=== PATIENT | male | born 2000 | race Caucasian/White ===

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

== ENCOUNTER 2021-05-25 13:16 | Inpatient (IN) | payer OTHER ==
[~2021-05-25] VITALS: Ht 185.4 cm; Wt 79.2 kg
[2021-05-25 14:01] LABS: HEMATOCRIT 44.6 % (42.0-52.0); HEMOGLOBIN 15.5 g/dl (13.5-17.5); MEAN CORPUSCULAR HEMOGLOBIN 30.3 pg (27.0-33.0); MEAN CORPUSCULAR HGB CONC 34.8 g/dl (32.0-36.5); MEAN CORPUSCULAR VOLUME 87.3 fl (80.0-96.0); PLATELET COUNT, AUTOMATED 245 10^3/uL (150-450); RED BLOOD COUNT 5.11 10^6/uL (4.30-6.10); WHITE BLOOD COUNT 4.9 10^3/uL (4.0-10.0)
[2021-05-25 14:45] LABS: ACETAMINOPHEN LEVEL < 2.0 UG/ML (10.0-30.0); BLOOD UREA NITROGEN 22 MG/DL (7-18); CARBON DIOXIDE LEVEL 31 MEQ/L (21-32); CHLORIDE LEVEL 103 MEQ/L (98-107); CREATININE FOR GFR 0.99 MG/DL (0.70-1.30); ETHYL ALCOHOL (ETHANOL) < 0.003 % (0.000-0.010); GLUCOSE, FASTING 82 MG/DL (70-100); POTASSIUM SERUM 4.3 MEQ/L (3.5-5.1); SALICYLATE LEVEL < 1.7 MG/DL (5.0-30.0); SODIUM LEVEL 138 MEQ/L (136-145)
[2021-05-25 16:05] LABS: AMPHETAMINES LEVEL URINE NEGATIVE (NEGATIVE); BARBITURATES URINE NEGATIVE (NEGATIVE); BENZODIAZEPINES URINE NEGATIVE (NEGATIVE); CANNABINOIDS URINE NEGATIVE (NEGATIVE); COCAINE METABOLITE URINE NEGATIVE (NEGATIVE); METHADONE URINE NEGATIVE (NEGATIVE); OPIATES URINE NEGATIVE (NEGATIVE); PHENCYCLIDINE URINE NEGATIVE (NEGATIVE)
[2021-05-25 16:24] LABS: RSV AMPLIFICATION NEGATIVE (NEGATIVE)
[2021-05-25] MEDS ORDERED: HOME MED LIST COMPLETE! XX SCH (16:40)
[2021-05-25] MEDS ORDERED: MOM 30ML SUSPENSION UDC PO PRN (16:45)
[2021-05-25] MEDS ORDERED: MAALOX 30 ML SUSP *UDC PO PRN (16:45)
[2021-05-25 17:22] VITALS: BP 144/85
[2021-05-26 07:08] VITALS: BP 131/74
--- NOTE | 2021-05-26 07:52 | MHHPEPDOC ---
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 States was sent to [facility] for intake due to concerns by workgroup leader due to "my change behavior, being more quiet I guess". Reports having suicidal thoughts, "I thought about harming myself by crashing my truck in a telephone poll probably" last time was yesterday morning reportedly. Denies any past suicide attempts. States "the thoughts come and go, and has gradually gotten worse in the past couple months". Denies other suicidal plans apart from crashing truck. Reports depression started "has been progressively getting worse the past couple months, getting real bad". States "I'm tired all the time and can barely function", "I do't have interest in doing anything including leaving my room", Reports having breakdowns where he "cries alot". Stressors include work, "has been stressful, just seems I get a pena to get there on time, If not get punished". Denies other stressors on questioning. Does endorse mild depressive periods at the age of 17, reports didn't get along with mother's boyfriend "was a drunk and treated me like a piece of trash". Denies any abuse or trauma history. Endorses longstanding social anxiety. Denies access to weapons including guns or knives. Denies drug use and toxicology screen is negative. Psychiatric Review of Systems Depression (2 or more weeks): depressed mood, anhedonia, insomnia/hypersomnia ("sometimes wake up throughout the night, fall asleep easily", curing oven attendant awakenings.), decreased energy ("fatigued all the time"), difficulty concentrating, psychomotor changes (slow thinking), suicidal thoughts Dalila (4 or more days of): denies Psychosis: paranoia (when im driving I think people are following me, "has been a while, when more anxious or depressed") PTSD: hypervigilance (" I usually face the door to see what's going on") Anxiety: situational anxiety (endorses social anxiety) Anxiety/ 6 months or more of: restlessness, keyed up, difficulty concentrating, muscle tension Past Psychiatric History Previous Psychiatric Diagnosis: none Previous Psychiatric Admissions: none Suicide Attempts: none Psychiatric Follow-up: [facility], had intake prior to coming to [facility] Psychiatric medications: no medications Past Medical History Medical Problems Denies Head Injury: No Seizures: No Hospitalizations: No Surgeries: No Family Medical/Psychiatric HX Medical Problems HTN, DM 1 (both grandmothers), grandmothers had cancer Psychiatric Disorders: No ("i don't think so") Addiction: No Suicide Attemps/Completions: No Addiction History denies Social History Childhood: Grew up in [place], [place], 1/2 sister, 1/2 brother, he is youngest. Abuse/Trauma:Denies Current Living Situation: Staying with parents most of the time in [place], in a house. [place] [employer] often. Education: grade 12 Employment: [employer] soldier on Social Support: Group of friends Legal: denies Marital: single, "I'm socially inept" Mental Status Examination General Appearance: well groomed Build: average Demeanor: withdrawn, guarded Eye Contact: avoidant Activity: slowed, anxious Behavior: cooperative, restless, withdrawn Speech: clear, slow, low in volume, non-spontaneous Mood: depressed Mood "depressed" Affect: flat, appropriate, congruent, anxious Thought Process: logical/linear, blocked, depressed, slow Thought Content (Delusions): paranoia Thought Content (Other): guarded, coherent Thought Content (Aggressive): none reported Perception (Hallucinations): none reported Perception (Other): none reported Cognition (Impairment of): attention/concentration Cognition(Intelligence Est.): average Oriented: Awake, Alert, Oriented times three Insight: fair Judgment: Poor Psychosis: Denies Diagnoses Major depressive disorder, single episode, severe, with psychotic features Social anxiety Agoraphobia A-FIB/CHADSVASC A-FIB History Current/History of A-Fib/PAF?: No Current PO Anticoag Therapy: No Age/Risk Factor Scoring CHADSVASC: CHADSVASC Response (Comments) Value Age Risk Factor Age < 65 years old 0 Gender Risk Factor Male 0 Hx of CHF No 0 Hx of HTN No 0 Hx of Stroke/TIA/or VTE No 0 Hx of Diabetes No 0 Hx of Vascular Disease No 0 Total 0 Treatment Treatment ordered: NONE Reason Anticoagulant not given: Not indicated/[id number] Assessment 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 States was sent to [facility] for intake due to concerns by workgroup leader due to "my change behavior, being more quiet I guess". Reports having suicidal thoughts, "I thought about harming myself by crashing my truck in a telephone poll probably" last time was yesterday morning reportedly. Denies any past suicide attempts. States "the thoughts come and go, and has gradually gotten worse in the past couple months". Denies other suicidal plans apart from crashing truck. Reports depression started "has been progressively getting worse the past couple months, getting real bad". States "I'm tired all the time and can barely function", "I do't have interest in doing anything including leaving my room", Reports having breakdowns where he "cries alot". Stressors include work, "has been stressful, just seems I get a pena to get there on time, If not get punished". Denies other stressors on questioning. Does endorse mild depressive periods at the age of 17, reports didn't get along with mother's boyfriend "was a drunk and treated me like a piece of trash". Denies any abuse or trauma history. Endorses longstanding social anxiety. Denies access to weapons including guns or knives. Denies drug use and toxicology screen is negative. Meets criteria for MDD, single episode, severe, with psychotic features and social anxiety disorder. Discussed treatment options and side effects including but not limited to rare serotonin syndrome, priapism, EPS, akathisia, rare NMS, suicidal thinking in those under age 25, metabolic side effects, sexual side effects and agrees to starting sertraline 50 mg po daily and abilify 2 mg qhs, also has prn trazodone 50 mg for sleep. Ordered TSH and fasting lipid panel. Does not want me to reach out to collateral at this time, discussed this is part of safety planning. Initial Treatment Plan 1. Patient was admitted on a [9.39] status. 2. Complete history was obtained. 3. With patients permission, family will be contacted and database will be expanded. 4. Patients medication regimen will be reviewed and changed accordingly. 5. Patient will be provided with protected environment. 6. Patient will be treated with individual, group, and milieu therapies. 7. Patient will receive supportive psych-education. 8. Discharge planning will commence immediately. 9. Outpatient follow-up treatment will be strongly recommended. 10. The initial treatment plan will focus initially on: * Depression. * Risk for suicide. ESTIMATED LENGTH OF STAY: 3-7 DAYS. TIME SPENT COUNSELING AND COORDINATING INITIAL CARE: 40 minutes. Tobacco Cessation Screen If Patient is a Smoker none Tobacco Cessation Tx Ordered?: Yes Ordered/Pending Vital Signs Vital Signs Date Time Temp Pulse Resp B/P (MAP) Pulse Ox O2 Delivery O2 Flow Rate FiO2 05/26/21 07:08 97.7 64 14 131/74 (93) 98 Room Air Laboratory Data 24H Labs Laboratory Tests 2 05/25/21 13:20: Urine Opiates Screen NEGATIVE, Urine Methadone Screen NEGATIVE, Urine Barbiturates Screen NEGATIVE, Urine Phencyclidine Screen NEGATIVE, Urine Amphetamines Screen NEGATIVE, Urine Benzodiazepines Screen NEGATIVE, Urine Cocaine Metabolite Screen NEGATIVE, Urine Cannabinoids Screen NEGATIVE 05/25/21 13:40: Nucleated Red Blood Cells % (auto) 0.0, Anion Gap 4L, Calcium Level 9.0, Salicylates Level < 1.7L, Acetaminophen Level < 2.0L, Ethyl Alcohol Level < 0.003 05/25/21 15:28: Coronavirus (COVID-19)(PCR) NEGATIVE, Influenza Type A (RT-PCR) NEGATIVE, Influenza Type B (RT-PCR) NEGATIVE, Respiratory Syncytial Virus (PCR) NEGATIVE CBC/BMP Laboratory Tests 05/25/21 13:40 Medications No Active Prescriptions or Reported Meds Allergies Coded Allergies: No Known Allergies (Unverified , 05/25/21) JOSE BRITO MD May 26, 2021 07:52
[2021-05-26] MEDS: NICOTINE 21MG/24HR 1 EA TRANSDERMAL TD SCH (09:00)
[2021-05-26] MEDS: SERTRALINE HCL 50 MG TAB PO SCH (10:24)
--- NOTE | 2021-05-26 14:59 | HPEPDOC ---
[facility] Medical History & Physical Date of Admission May 26, 2021 Date of Service: May 26, 2021 History and Physical CHIEF COMPLAINT: Feels sad HISTORY OF PRESENT ILLNESS: 20-year-old male with no reported past medical history was sent to the emergency room department for evaluation of a change in mood [facility]. Patient reports lately, he has been feeling more depressed, sad and withdrawn. He has not been wanting to participate in activities with. He attributes this to stressors in his life including work. He also endorses suicidal ideation thoughts of harming himself or crashing his truck in a telephone pole. At this junction, he denies chest pain, headaches, vision, palpitations, nominal pain, nausea, vomiting, problems with urination or bowel movements. PAST MEDICAL HISTORY: Denies PAST SURGICAL HISTORY: Denies SOCIAL HISTORY: Active soldier for trauma. Denies smoking, drinking, use of recreational drugs. FAMILY HISTORY: Father has hypertension ALLERGIES: Please see below. REVIEW OF SYSTEMS: 10 point review of system was negative except for what is noted in the HPI HOME MEDICATIONS: Please see below. PHYSICAL EXAMINATION: VITAL SIGNS: Please see below General: Lying in bed, no acute distress Head/Neck/Throat: Trachea midline, mucous membranes moist Eyes: Sclera anicteric, PERRLA Thorax: Normal respiratory effort on room air, lungs clear to auscultation bilaterally, no wheezes/rales/rhonchi Cardiovascular: Normal rate, regular rhythm, normal S1, S2; no S3, S4, rubs/gallops/murmurs Abdomen: Bowel sounds present, soft/nontender/nondistended Genitourinary: No CVA tenderness, no Paez in place Musculoskeletal: Moving all extremities, no edema Skin: Warm, dry Neurologic: AAOx3, speech fluent and goal-directed, no focal deficits, grossly intact LABORATORY DATA: See below. IMAGING: No imaging to review at this time MICROBIOLOGY: Please see below. ASSESSMENT/PLAN: #Unspecified mood disorder -Patient presented with symptoms consistent with depression and suicidal ideation. Will defer management to psychiatry team. #DVT prophylaxis -Encourage ambulation Medical team will sign off at this time please reconsult if needed. History and physical examination was done in the presence of relay operator. Vital Signs Vital Signs Date Time Temp Pulse Resp B/P (MAP) Pulse Ox O2 Delivery O2 Flow Rate FiO2 9/30/21 07:08 97.7 64 14 131/74 (93) 98 Room Air Laboratory Data Labs 24H Laboratory Tests 2 05/25/21 15:28: Coronavirus (COVID-19)(PCR) NEGATIVE, Influenza Type A (RT-PCR) NEGATIVE, Influenza Type B (RT-PCR) NEGATIVE, Respiratory Syncytial Virus (PCR) NEGATIVE Home Medications No Active Prescriptions or Reported Meds Allergies Coded Allergies: No Known Allergies (Unverified , 05/25/21) A-FIB/CHADSVASC A-FIB History Current/History of A-Fib/PAF?: No Age/Risk Factor Scoring CHADSVASC: CHADSVASC Response (Comments) Value Age Risk Factor Age < 65 years old 0 Gender Risk Factor Male 0 Hx of CHF No 0 Hx of HTN No 0 Hx of Stroke/TIA/or VTE No 0 Hx of Diabetes No 0 Hx of Vascular Disease No 0 Total 0 CAMMIE FULLER M.D. May 26, 2021 14:59
[2021-05-26 16:00] VITALS: BP 131/79
[2021-05-26] MEDS ORDERED: ARIPiprazole 2 MG TAB PO SCH (21:00)
[2021-05-27 06:22] VITALS: BP 116/64
[2021-05-27] MEDS: SERTRALINE HCL 50 MG TAB PO SCH (08:23)
[2021-05-27] MEDS: NICOTINE 21MG/24HR 1 EA TRANSDERMAL TD SCH (08:23)
--- NOTE | 2021-05-27 10:38 | MHIPNPDOC ---
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 States was sent to [facility] for intake due to concerns by environmental health and safety leader due to "my change behavior, being more quiet I guess". Reports having suicidal thoughts, "I thought about harming myself by crashing my truck in a telephone poll probably" last time was yesterday morning reportedly. Denies any past suicide attempts. States "the thoughts come and go, and has gradually gotten worse in the past couple months". Denies other suicidal plans apart from crashing truck. Reports depression started "has been progressively getting worse the past couple months, getting real bad". States "I'm tired all the time and can barely function", "I do't have interest in doing anything including leaving my room", Reports having breakdowns where he "cries alot". Stressors include work, "has been stressful, just seems I get a pena to get there on time, If not get punished". Denies other stressors on questioning. Does endorse mild depressive periods at the age of 17, reports didn't get along with mother's boyfriend "was a drunk and treated me like a piece of trash". Denies any abuse or trauma history. Endorses longstanding social anxiety. Denies access to weapons including guns or knives. Denies drug use and toxicology screen is negative. Interval: States he is not too bad, not much different than previous days, reports lower back pain which is dull and sometimes sharp reports having good response to heating pads in the past. Has been attending groups. Reports he has not had any medication side effects, has not noticed any difference, agrees to augmentation of Abilify for acute mood stabilization. No akathisia noted, no acute physical complaints apart from back pain. VITAL SIGNS: See below. NEW TEST RESULTS: Lipid panel continues to be pending CURRENT MEDICATIONS: See below. MENTAL STATUS EXAMINATION: Patient is a 20-year old male, who is has good hygiene, tall, normal build, appears stated age, poor eye contact. Speech: Is slowed, non-spontaneous, decreased amount Language skills are fair, he believes them to be very poor Thought processes including: Linear and logical, not goal oriented. Thought content: Fleeting suicidal thoughts, denies intent or plan. Abstract reasoning, and computation: Fair. Description of associations: Fair. Description of abnormal or psychotic thoughts: Denies. Judgment: Fair. Insight: Fair. Orientation: x4 Recent and remote memory: Intact. Attention span and concentration: Poor Language: Tanzanian. Fund of knowledge: Average. Mood: "Not too bad right now". Affect: Severely dysthymic, constricted, almost tearful, appropriate, mood congruent DIAGNOSES: Major depressive disorder, single episode, severe, with psychotic features Social anxiety Agoraphobia ASSESSMENT: Continues to appear moderately to severely dysthymic, with little improvement. Has chronic suicidal thoughts which have not improved. Needs extended stay for acute stabilization of depressive symptoms MANAGEMENT PLAN: Increase Abilify from 2 to 5 mg nightly for acute stabilization of mood and for impulsivity. Continue sertraline 50 mg p.o. daily for mood. TIME SPENT: 20 minutes. Vital Signs Vital Signs Date Time Temp Pulse Resp B/P (MAP) Pulse Ox O2 Delivery O2 Flow Rate FiO2 05/27/21 06:22 98.3 58 14 116/64 (81) 97 Room Air Laboratory Data 24H Labs Laboratory Tests 2 05/27/21 09:40: Current Medications Current Medications Medications (Trade) Dose Ordered Sig/Yordan Route PRN Reason Start Time Stop Time Status Last Admin Dose Admin Acetaminophen (Tylenol Tab) 650 mg Q6HP PRN PO HEADACHE or MILD DISCOMFORT 05/25/21 16:45 Al Hydrox/Mg Hydrox/Simethicone (Mylanta) 30 ml Q4HP PRN PO HEARTBURN/INDIGESTION 05/25/21 16:45 Aripiprazole (AbiLIFY) 2 mg QHS PO 05/26/21 21:00 05/26/21 20:04 Home Med (Home Med List Complete!) ASDIRECTED XX 05/25/21 16:40 05/25/21 16:40 DC Magnesium Hydroxide (Milk Of Magnesia) 30 ml DAILYPRN PRN PO CONSTIPATION 05/25/21 16:45 Nicotine (Nicoderm Cq 21mg) 1 patch DAILY TD 05/26/21 09:00 Sertraline HCl (Zoloft) 50 mg QAM PO 05/26/21 09:25 05/27/21 08:23 Trazodone HCl (Desyrel) 50 mg QHSP PRN PO INSOMNIA 05/25/21 16:45 Allergies Coded Allergies: No Known Allergies (Unverified , 05/25/21) JOSE BRITO MD May 27, 2021 10:38
[2021-05-27 11:19] LABS: CHOLESTEROL RISK RATIO 2.842 (<5); THYROID STIMULATING HORMONE 0.457 uIU/ML (0.463-3.98)
[2021-05-27 16:13] VITALS: BP 132/60
[2021-05-28 06:15] VITALS: BP 153/67
[2021-05-28] MEDS: SERTRALINE HCL 50 MG TAB PO SCH (08:00)
[2021-05-28] MEDS: NICOTINE 21MG/24HR 1 EA TRANSDERMAL TD SCH (08:00)
--- NOTE | 2021-05-28 14:12 | MHIPNPDOC ---
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. States was sent to [facility] for intake due to concerns by engineering leader due to "my change behavior, being more quiet I guess". Reports having suicidal thoughts, "I thought about harming myself by crashing my truck in a telephone poll probably" last time was yesterday morning reportedly. Denies any past suicide attempts. States "the thoughts come and go, and has gradually gotten worse in the past couple months". Denies other suicidal plans apart from crashing truck. Reports depression started "has been progressively getting worse the past couple months, getting real bad". States "I'm tired all the time and can barely function", "I do't have interest in doing anything including leaving my room", Reports having breakdowns where he "cries alot". Stressors include work, "has been stressful, just seems I get a pena to get there on time, If not get punished". Denies other stressors on questioning. Does endorse mild depressive periods at the age of 17, reports didn't get along with mother's boyfriend "was a drunk and treated me like a piece of trash". Denies any abuse or trauma history. Endorses longstanding social anxiety. Denies access to weapons including guns or knives. Denies drug use and toxicology screen is negative. Interval: Feels slightly improved compared to previous days, but continues to experience depression. Reports an episode of diarrhea since starting the medications, but otherwise notes no side effects. Feels that he is able to get regular sleep, and does not notice that he has overly tired during the daytime. Denies current thoughts of suicide, and feels safe here on the unit. VITAL SIGNS: See below. NEW TEST RESULTS: HDL mildly low, as is TSH. Neither are actionable values at this point. CURRENT MEDICATIONS: See below. MENTAL STATUS EXAMINATION: Patient is a 20-year old male, who is dressed in hospital clothing. Speech: Is spontaneous, mildly slowed, regular volume and rhythm. Language skills are intact. Thought processes including: Linear. Thought content: Denies current SI, denies paranoia. Abstract reasoning, and computation: Appears intact. Description of associations: Linear. Description of abnormal or psychotic thoughts: Denies paranoia or auditory/visual hallucinations. Judgment: Fair. Insight: Fair. Orientation: X3. Recent and remote memory: Intact. Attention span and concentration: Intact. Fund of knowledge: Appropriate for age and educational level. Mood: "About the same". Affect: Dysphoric, constricted, congruent to stated mood. DIAGNOSES: Major depressive disorder, single episode, severe, with psychotic features Social anxiety Agoraphobia ASSESSMENT: Continues to appear moderately to severely dysthymic, with little improvement. Has chronic suicidal thoughts which are beginning to improve. Needs extended stay for acute stabilization of depressive symptoms MANAGEMENT PLAN: Continue Abilify 5 mg nightly for acute stabilization of mood and for impulsivity. Continue sertraline 50 mg p.o. daily for mood. TIME SPENT: 20 minutes. Vital Signs Vital Signs Date Time Temp Pulse Resp B/P (MAP) Pulse Ox O2 Delivery O2 Flow Rate FiO2 05/28/21 06:15 98.1 75 16 153/67 (95) 98 Room Air Current Medications Current Medications Medications (Trade) Dose Ordered Sig/Yordan Route PRN Reason Start Time Stop Time Status Last Admin Dose Admin Acetaminophen (Tylenol Tab) 650 mg Q6HP PRN PO HEADACHE or MILD DISCOMFORT 05/25/21 16:45 Al Hydrox/Mg Hydrox/Simethicone (Mylanta) 30 ml Q4HP PRN PO HEARTBURN/INDIGESTION 05/25/21 16:45 Aripiprazole (AbiLIFY) 2 mg QHS PO 05/26/21 21:00 05/27/21 10:33 DC 05/26/21 20:04 Aripiprazole (AbiLIFY) 5 mg QHS PO 05/27/21 21:00 05/27/21 20:09 Home Med (Home Med List Complete!) ASDIRECTED XX 05/25/21 16:40 05/25/21 16:40 DC Magnesium Hydroxide (Milk Of Magnesia) 30 ml DAILYPRN PRN PO CONSTIPATION 05/25/21 16:45 Nicotine (Nicoderm Cq 21mg) 1 patch DAILY TD 05/26/21 09:00 Sertraline HCl (Zoloft) 50 mg QAM PO 05/26/21 09:25 05/28/21 08:00 Trazodone HCl (Desyrel) 50 mg QHSP PRN PO INSOMNIA 05/25/21 16:45 Allergies Coded Allergies: No Known Allergies (Unverified , 05/25/21) YASEMIN MTZ MD May 28, 2021 13:51
[2021-05-28 16:29] VITALS: BP 129/79
[2021-05-29 06:00] VITALS: BP 148/67
[2021-05-29] MEDS: NICOTINE 21MG/24HR 1 EA TRANSDERMAL TD SCH (08:20)
[2021-05-29] MEDS: SERTRALINE HCL 50 MG TAB PO SCH (08:21)
--- NOTE | 2021-05-29 13:08 | MHIPNPDOC ---
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 States was sent to [facility] for intake due to concerns by floorleader due to "my change behavior, being more quiet I guess". Reports having suicidal thoughts, "I thought about harming myself by crashing my truck in a telephone poll probably" last time was yesterday morning reportedly. Denies any past suicide attempts. States "the thoughts come and go, and has gradually gotten worse in the past couple months". Denies other suicidal plans apart from crashing truck. Reports depression started "has been progressively getting worse the past couple months, getting real bad". States "I'm tired all the time and can barely function", "I do't have interest in doing anything including leaving my room", Reports having breakdowns where he "cries alot". Stressors include work, "has been stressful, just seems I get a pena to get there on time, If not get punished". Denies other stressors on questioning. Does endorse mild depressive periods at the age of 17, reports didn't get along with mother's boyfriend "was a drunk and treated me like a piece of trash". Denies any abuse or trauma history. Endorses longstanding social anxiety. Denies access to weapons including guns or knives. Denies drug use and toxicology screen is negative. Interval: Reports diarrhea again yesterday, but states he is not have that today. He feels that his mood continues to improve, we discussed possibly making further adjustments to his medications to help speed improvement of necessary, however Jamal feels that he would like to continue at the current dose and not make changes at this point in time. Reviewed with him the low TSH value that was noted yesterday, we agreed that we would assess his thyroid hormones to determine if this is actually a clinically relevant value or subclinical hyperthyroidism. At present he does not report any physical symptoms consistent with a hyperthyroid state. VITAL SIGNS: See below. NEW TEST RESULTS: None CURRENT MEDICATIONS: See below. MENTAL STATUS EXAMINATION: Patient is a 20-year old male, who is dressed in hospital clothing. Speech: Is spontaneous, mildly slowed, regular volume and rhythm. Language skills are intact. Thought processes including: Linear. Thought content: Denies current SI, denies paranoia. Abstract reasoning, and computation: Appears intact. Description of associations: Linear. Description of abnormal or psychotic thoughts: Denies paranoia or auditory/visual hallucinations. Judgment: Fair. Insight: Fair. Orientation: X3. Recent and remote memory: Intact. Attention span and concentration: Intact. Fund of knowledge: Appropriate for age and educational level. Mood: "I feel okay". Affect: Dysphoric, constricted, congruent to stated mood. DIAGNOSES: Major depressive disorder, single episode, severe, with psychotic features Social anxiety Agoraphobia ASSESSMENT: Reports no suicidal thoughts today, this appears to be improvement from yesterday. He does seem slightly more engaged today than he did yesterday, although seen by different time may affect this. We will check his free T4 to determine if he is in a hyperthyroid state, this may influence treatment regimen. However given his lack of clinical symptoms associated with hyperthyroidism it is likely that this is a subclinical value and may just need to be monitored over time with his PCP. MANAGEMENT PLAN: Continue Abilify 5 mg nightly for acute stabilization of mood and for impulsivity. Continue sertraline 50 mg p.o. daily for mood. Labs ordered for free T4 TIME SPENT: 15 minutes. Vital Signs Vital Signs Date Time Temp Pulse Resp B/P (MAP) Pulse Ox O2 Delivery O2 Flow Rate FiO2 05/29/21 06:00 98.1 81 18 148/67 (94) 98 Room Air Current Medications Current Medications Medications (Trade) Dose Ordered Sig/Yordan Route PRN Reason Start Time Stop Time Status Last Admin Dose Admin Acetaminophen (Tylenol Tab) 650 mg Q6HP PRN PO HEADACHE or MILD DISCOMFORT 05/25/21 16:45 Al Hydrox/Mg Hydrox/Simethicone (Mylanta) 30 ml Q4HP PRN PO HEARTBURN/INDIGESTION 05/25/21 16:45 Aripiprazole (AbiLIFY) 2 mg QHS PO 05/26/21 21:00 05/27/21 10:33 DC 05/26/21 20:04 Aripiprazole (AbiLIFY) 5 mg QHS PO 05/27/21 21:00 05/28/21 19:53 Home Med (Home Med List Complete!) ASDIRECTED XX 05/25/21 16:40 05/25/21 16:40 DC Magnesium Hydroxide (Milk Of Magnesia) 30 ml DAILYPRN PRN PO CONSTIPATION 05/25/21 16:45 Nicotine (Nicoderm Cq 21mg) 1 patch DAILY TD 05/26/21 09:00 Sertraline HCl (Zoloft) 50 mg QAM PO 05/26/21 09:25 05/29/21 08:21 Trazodone HCl (Desyrel) 50 mg QHSP PRN PO INSOMNIA 05/25/21 16:45 Allergies Coded Allergies: No Known Allergies (Unverified , 05/25/21) YASEMIN MTZ MD May 29, 2021 13:08
[2021-05-29 16:34] VITALS: BP 132/68
[2021-05-29] MEDS: ACETAMINOPHEN TAB 650MG DOSE (2X325MG) PO PRN (16:52)
[2021-05-30 07:09] VITALS: BP 128/69
[2021-05-30] MEDS: NICOTINE 21MG/24HR 1 EA TRANSDERMAL TD SCH (09:00)
[2021-05-30] MEDS: SERTRALINE HCL 50 MG TAB PO SCH (09:29)
[2021-05-30] MEDS: ACETAMINOPHEN TAB 650MG DOSE (2X325MG) PO PRN ×2 (09:30→16:07)
--- NOTE | 2021-05-30 11:40 | MHIPNPDOC ---
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 States was sent to [facility] for intake due to concerns by bridge/structure inspection team leader due to "my change behavior, being more quiet I guess". Reports having suicidal thoughts, "I thought about harming myself by crashing my truck in a telephone poll probably" last time was yesterday morning reportedly. Denies any past suicide attempts. States "the thoughts come and go, and has gradually gotten worse in the past couple months". Denies other suicidal plans apart from crashing truck. Reports depression started "has been progressively getting worse the past couple months, getting real bad". States "I'm tired all the time and can barely function", "I do't have interest in doing anything including leaving my room", Reports having breakdowns where he "cries alot". Stressors include work, "has been stressful, just seems I get a pena to get there on time, If not get punished". Denies other stressors on questioning. Does endorse mild depressive periods at the age of 17, reports didn't get along with mother's boyfriend "was a drunk and treated me like a piece of trash". Denies any abuse or trauma history. Endorses longstanding social anxiety. Denies access to weapons including guns or knives. Denies drug use and toxicology screen is negative. Interval: Labs reviewed, TSH was low at 0.457, which patient discussed with the weekend covering physician, T4 is 0.98 and within normal, should have followed by PCP, denies any other symptoms of hypothyroidism. Endorses some improvement in mood overall, energy, sleep continues to be erratic due to uncomfortable bed reportedly, was offered as needed trazodone but states he wants to try continue with his current regimen, was also offered augmentation with other medications but refused due to ongoing diarrhea which he wants to see if it goes away, did have a period of decreased diarrhea over the weekend. Overall feels medications are helping with mood, denies other side effects. No acute physical complaints VITAL SIGNS: See below. NEW TEST RESULTS: Low TSH of 0.457 May 27, T4 0.98 May 29 within normal limits CURRENT MEDICATIONS: See below. MENTAL STATUS EXAMINATION: Patient is a 20-year old male, who is has good hygiene, tall, average build, appears stated age, improving eye contact. Speech: Is slowed, non-spontaneous, decreased amount Language skills are fair, he believes them to be very poor Thought processes including: Linear and logical, not goal oriented. Thought content: Fewer fleeting suicidal thoughts, denies intent or plan. Abstract reasoning, and computation: Good description of associations: Good. Description of abnormal or psychotic thoughts: Denies. Judgment: Improving Insight: Improving Orientation: x4 Recent and remote memory: Intact. Attention span and concentration: Poor Language: Vincentian. Fund of knowledge: Average. Mood: "A little better". Affect: Mild to moderately dysthymic, constricted, no longer tear, appropriate, mood congruent DIAGNOSES: Major depressive disorder, single episode, severe, with psychotic features Social anxiety Agoraphobia ASSESSMENT: Reports his mood continues to improve on current medications, despite reported side effect of diarrhea with initiation of sertraline and Abilify. Overall states not overly bothersome and wants to stick with the medications without having any increased in dosage or augmentation. Needs extended stay for acute stabilization of depressive symptoms MANAGEMENT PLAN: Continue Abilify 5 mg nightly for acute stabilization of mood and for impulsivity. Continue sertraline 50 mg p.o. daily for mood. Will consider making adjustments if continues to have diarrhea or mood does not continue to improve. T4 level obtained on May 29 within normal limits. TIME SPENT: 15 minutes. Vital Signs Vital Signs Date Time Temp Pulse Resp B/P (MAP) Pulse Ox O2 Delivery O2 Flow Rate FiO2 05/30/21 07:09 97.6 62 16 128/69 (88) 97 Room Air Laboratory Data 24H Labs Laboratory Tests 2 05/29/21 13:17: Free Thyroxine 0.98 Current Medications Current Medications Medications (Trade) Dose Ordered Sig/Yordan Route PRN Reason Start Time Stop Time Status Last Admin Dose Admin Acetaminophen (Tylenol Tab) 650 mg Q6HP PRN PO HEADACHE or MILD DISCOMFORT 05/25/21 16:45 05/30/21 09:30 Al Hydrox/Mg Hydrox/Simethicone (Mylanta) 30 ml Q4HP PRN PO HEARTBURN/INDIGESTION 05/25/21 16:45 Aripiprazole (AbiLIFY) 2 mg QHS PO 05/26/21 21:00 05/27/21 10:33 DC 05/26/21 20:04 Aripiprazole (AbiLIFY) 5 mg QHS PO 05/27/21 21:00 05/29/21 21:09 Home Med (Home Med List Complete!) ASDIRECTED XX 05/25/21 16:40 05/25/21 16:40 DC Magnesium Hydroxide (Milk Of Magnesia) 30 ml DAILYPRN PRN PO CONSTIPATION 05/25/21 16:45 Nicotine (Nicoderm Cq 21mg) 1 patch DAILY TD 05/26/21 09:00 05/30/21 09:33 DC Sertraline HCl (Zoloft) 50 mg QAM PO 05/26/21 09:25 05/30/21 09:29 Trazodone HCl (Desyrel) 50 mg QHSP PRN PO INSOMNIA 05/25/21 16:45 Allergies Coded Allergies: No Known Allergies (Unverified , 05/25/21) JOSE BRITO MD May 30, 2021 11:40
[2021-05-30 17:42] VITALS: BP 132/88
[2021-05-30] MEDS: traZODone 50 MG TAB PO PRN (20:05)
[2021-05-31 06:00] VITALS: BP 115/64
[2021-05-31] MEDS: SERTRALINE HCL 50 MG TAB PO SCH (09:16)
[2021-05-31] MEDS: ACETAMINOPHEN TAB 650MG DOSE (2X325MG) PO PRN (09:17)
--- NOTE | 2021-05-31 12:09 | MHIPNPDOC ---
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. States was sent to [facility] for intake due to concerns by machine adjuster leader case trim due to "my change behavior, being more quiet I guess". Reports having suicidal thoughts, "I thought about harming myself by crashing my truck in a telephone poll probably" last time was yesterday morning reportedly. Denies any past suicide attempts. States "the thoughts come and go, and has gradually gotten worse in the past couple months". Denies other suicidal plans apart from crashing truck. Reports depression started "has been progressively getting worse the past couple months, getting real bad". States "I'm tired all the time and can barely function", "I do't have interest in doing anything including leaving my room", Reports having breakdowns where he "cries alot". Stressors include work, "has been stressful, just seems I get a pena to get there on time, If not get punished". Denies other stressors on questioning. Does endorse mild depressive periods at the age of 17, reports didn't get along with mother's boyfriend "was a drunk and treated me like a piece of trash". Denies any abuse or trauma history. Endorses longstanding social anxiety. Denies access to weapons including guns or knives. Denies drug use and toxicology screen is negative. Interval: Saw patient twice today as he had questions about plan for discharge. He states his mood is "fine, but a bit better", continues to endorse medications are helping with mood, reports he had some diarrhea yesterday but seems to have improved today and no longer had any episodes of diarrhea today, refuses to have medications help with symptoms as he feels symptoms are improving. He is eating and drinking normally. He started to ask about discharge, on further discussion states "no longer having suicidal ideation but that I will know how things will be when I leave here", he is agreeable to extended stay to allow time for medication changes to take effect and help with mood symptoms. Also reports having a muscle spasm which started 2 to 3 days ago under left shoulder blade, refuses Cogentin for now, agrees to decreasing dose of Abilify to 2 mg nightly as may be contributing to acute dystonias under left shoulder blade. States sleep is improved, however woke up a few times in the night and found it difficult to get to sleep, but gets over 6 hours per night. Has been going to groups. Denies paranoia or psychotic symptoms. VITAL SIGNS: See below. NEW TEST RESULTS: None CURRENT MEDICATIONS: See below. MENTAL STATUS EXAMINATION: Patient is a 20-year old male, who is has good hygiene, tall, average build, appears stated age, continues to have improved eye contact. Speech: Is slowed, non-spontaneous, decreased amount Language skills good Thought processes including: Linear and logical, becoming more goal oriented to return to life outside the hospital Thought content: Continues to have fewer fleeting suicidal thoughts, none this a.m., denies intent or plan. Abstract reasoning, and computation: Good description of associations: Good. Description of abnormal or psychotic thoughts: Denies. Judgment: Good Insight: Improving Orientation: x4 Recent and remote memory: Intact. Attention span and concentration: Poor Language: Norwegian. Fund of knowledge: Average. Mood: "Fine, but a bit better". Affect: Less dysthymic, continues to be constricted, stable, appropriate, mood-congruent DIAGNOSES: Major depressive disorder, single episode, severe, with psychotic features Social anxiety Agoraphobia ASSESSMENT: Patient likely had acute dystonia in the left latissimus dorsi, reports was not overly bothersome but interfered with sleep, refused Cogentin despite being offered to reduce EPS symptoms, was agreeable to decreasing Roxane lify dose to 2 mg nightly. Reports diarrhea has improved, likely in context of adjusting to medications. Otherwise feels medications helping with depression and anxiety symptoms, no longer having paranoia or any symptoms of psychosis. Patient started to think about discharge, but needs extended stay for adjustment in medications and remission of depression and suicidal thoughts. MANAGEMENT PLAN: Decrease Abilify to 2 mg nightly for acute stabilization of mood and for impulsivity, psychotic symptoms in the context of depression. Continue sertraline 50 mg p.o. daily for mood. TIME SPENT: 25 minutes. Vital Signs Vital Signs Date Time Temp Pulse Resp B/P (MAP) Pulse Ox O2 Delivery O2 Flow Rate FiO2 05/31/21 06:00 97.8 73 14 115/64 (81) 99 10/4/21 07:09 Room Air Current Medications Current Medications Medications (Trade) Dose Ordered Sig/Yordan Route PRN Reason Start Time Stop Time Status Last Admin Dose Admin Acetaminophen (Tylenol Tab) 650 mg Q6HP PRN PO HEADACHE or MILD DISCOMFORT 05/25/21 16:45 05/31/21 09:17 Al Hydrox/Mg Hydrox/Simethicone (Mylanta) 30 ml Q4HP PRN PO HEARTBURN/INDIGESTION 05/25/21 16:45 Aripiprazole (AbiLIFY) 2 mg QHS PO 05/26/21 21:00 05/27/21 10:33 DC 05/26/21 20:04 Aripiprazole (AbiLIFY) 2 mg QHS PO 05/31/21 21:00 Aripiprazole (AbiLIFY) 5 mg QHS PO 05/27/21 21:00 05/31/21 09:52 DC 05/30/21 20:05 Home Med (Home Med List Complete!) ASDIRECTED XX 05/25/21 16:40 05/25/21 16:40 DC Magnesium Hydroxide (Milk Of Magnesia) 30 ml DAILYPRN PRN PO CONSTIPATION 05/25/21 16:45 Nicotine (Nicoderm Cq 21mg) 1 patch DAILY TD 05/26/21 09:00 05/30/21 09:33 DC Sertraline HCl (Zoloft) 50 mg QAM PO 05/26/21 09:25 05/31/21 09:16 Trazodone HCl (Desyrel) 50 mg QHSP PRN PO INSOMNIA 05/25/21 16:45 05/30/21 20:05 Allergies Coded Allergies: No Known Allergies (Unverified , 05/25/21) JOSE BRITO MD May 31, 2021 12:09
[2021-05-31] MEDS ORDERED: BENZTROPINE 0.5 MG TAB PO PRN (12:10)
[2021-05-31 19:21] VITALS: BP 148/82
[2021-05-31] MEDS: ARIPiprazole 2 MG TAB PO SCH (20:08)
[2021-06-01 06:00] VITALS: BP 119/72
[2021-06-01] MEDS: SERTRALINE HCL 50 MG TAB PO SCH (08:30)
[2021-06-01] MEDS: ACETAMINOPHEN TAB 650MG DOSE (2X325MG) PO PRN (10:37)
--- NOTE | 2021-06-01 13:56 | MHIPNPDOC ---
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 States was sent to [facility] for intake due to concerns by engineering group leader due to "my change behavior, being more quiet I guess". Reports having suicidal thoughts, "I thought about harming myself by crashing my truck in a telephone poll probably" last time was yesterday morning reportedly. Denies any past suicide attempts. States "the thoughts come and go, and has gradually gotten worse in the past couple months". Denies other suicidal plans apart from crashing truck. Reports depression started "has been progressively getting worse the past couple months, getting real bad". States "I'm tired all the time and can barely function", "I don't have interest in doing anything including leaving my room", Reports having breakdowns where he "cries alot". Stressors include work, "has been stressful, just seems I get a pena to get there on time, If not get punished". Denies other stressors on questioning. Does endorse mild depressive periods at the age of 17, reports didn't get along with mother's boyfriend "was a drunk and treated me like a piece of trash". Denies any abuse or trauma history. Endorses longstanding social anxiety. Denies access to weapons including guns or knives. Denies drug use and toxicology screen is negative. Interval: Today patient denies any paranoia, is concerned about current roommate who seems kind of strange. Feels mood continues to improve and is only medication changes, endorses that muscle spasms have gone away since decreasing dose of Abilify. Patient has been attending groups, was seen in the social media smiling and playing games with other patients. Patient agreed for us to reach out to mother's collateral, but did not want us to discuss details of his admission, explained we need to come up with a safety plan that involves restric ting access to means. Agrees for us to reach out to his mother for collateral Monet Agusto: [phone]: "He didn't go into detail on why he is in there, I noticed him going off and secluding in his room before this happened. He doesn't want to worry someone, keeps it all inside. He was tired all the time, has had trouble. I think went into for all the wrong reasons, he's unhappy there. He's been suffering with depression probably before joining . No past suicide attempts. He sounded a little better yesterday. He said he felt a little better. The though is his stress factor, he still has 3 years. I'm just glad he asked for help. Depression runs in my family." VITAL SIGNS: See below. NEW TEST RESULTS: None CURRENT MEDICATIONS: See below. MENTAL STATUS EXAMINATION: Patient is a 20-year old male, who is has good hygiene, tall, average build, appears stated age, continues to have improved eye contact. Speech: Is slowed, non-spontaneous, decreased amount Language skills good Thought processes including: Linear and logical, becoming more goal oriented to return to life outside the hospital Thought content: Continues to have fewer fleeting suicidal thoughts, none this a.m., denies intent or plan. Abstract reasoning, and computation: Good description of associations: Good. Description of abnormal or psychotic thoughts: Denies. Judgment: Good Insight: Improving Orientation: x4 Recent and remote memory: Intact. Attention span and concentration: Poor Language: British. Fund of knowledge: Average. Mood: "Good, I feel ready to go". Affect: Continues to be less dysthymic, mildly anxious, continues to be constricted, stable, appropriate, mood-congruent DIAGNOSES: Major depressive disorder, single episode, severe, with psychotic features Social anxiety Agoraphobia ASSESSMENT: Patient continues to improve, denies any paranoia, reports reduction of muscle spasms since lowering the Abilify which she is now tolerating well, denies diarrhea since continuing sertraline, was offered to have augmentation of Wellbutrin as continues to appear somewhat constricted, despite him reporting he is feeling better and mother noticing per collateral that he seemed to sound better on the phone. Possible discharge tomorrow if continues to improve. Needs continued stay due to adjusting to medication changes and for involvement and safety planning to ensure safety when he leaves the unit. MANAGEMENT PLAN: Continue Abilify 2 mg nightly for acute stabilization of mood and for impulsivity, psychotic symptoms in the context of depression. Continue sertraline 50 mg p.o. daily for mood. Education provided to patient regarding safety planning, disclosing high risk behaviors to support so that they can help him if he gets into a crisis, also encouraged to reach out to supports when in the crisis. TIME SPENT: 20 minutes. Vital Signs Vital Signs Date Time Temp Pulse Resp B/P (MAP) Pulse Ox O2 Delivery O2 Flow Rate FiO2 06/01/21 09:05 Room Air 06/01/21 06:00 98.2 76 20 119/72 (88) 98 Current Medications Current Medications Medications (Trade) Dose Ordered Sig/Yordan Route PRN Reason Start Time Stop Time Status Last Admin Dose Admin Acetaminophen (Tylenol Tab) 650 mg Q6HP PRN PO HEADACHE or MILD DISCOMFORT 05/25/21 16:45 06/01/21 10:37 Al Hydrox/Mg Hydrox/Simethicone (Mylanta) 30 ml Q4HP PRN PO HEARTBURN/INDIGESTION 05/25/21 16:45 Aripiprazole (AbiLIFY) 2 mg QHS PO 05/26/21 21:00 05/27/21 10:33 DC 05/26/21 20:04 Aripiprazole (AbiLIFY) 2 mg QHS PO 05/31/21 21:00 05/31/21 20:08 Aripiprazole (AbiLIFY) 5 mg QHS PO 05/27/21 21:00 05/31/21 09:52 DC 05/30/21 20:05 Benztropine Mesylate (Cogentin) 0.5 mg DAILY PRN PO MUSCLE SPASMS 05/31/21 12:10 Home Med (Home Med List Complete!) ASDIRECTED XX 05/25/21 16:40 05/25/21 16:40 DC Magnesium Hydroxide (Milk Of Magnesia) 30 ml DAILYPRN PRN PO CONSTIPATION 05/25/21 16:45 Nicotine (Nicoderm Cq 21mg) 1 patch DAILY TD 05/26/21 09:00 05/30/21 09:33 DC Sertraline HCl (Zoloft) 50 mg QAM PO 05/26/21 09:25 06/01/21 08:30 Trazodone HCl (Desyrel) 50 mg QHSP PRN PO INSOMNIA 05/25/21 16:45 05/30/21 20:05 Allergies Coded Allergies: No Known Allergies (Unverified , 05/25/21) JOSE BRITO MD Jun 01, 2021 13:56
[2021-06-01 19:23] VITALS: BP 136/84
[2021-06-01] MEDS: ARIPiprazole 2 MG TAB PO SCH (20:04)
[2021-06-01] MEDS: traZODone 50 MG TAB PO PRN (20:39)
[2021-06-02 06:34] VITALS: BP 138/65
[2021-06-02] MEDS: SERTRALINE HCL 50 MG TAB PO SCH (08:09)
[2021-06-02] MEDS ORDERED: SERT50TA29 PO (09:10)
[2021-06-02] MEDS ORDERED: TRAZ-252 PO (09:10)
[2021-06-02] MEDS ORDERED: ABIL1TAB13 PO (09:10)
--- NOTE | 2021-06-02 10:25 | MHDSPDOC ---
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 States was sent to [facility] for intake due to concerns from maintenance leader due to "my change behavior, being more quiet I guess". Reports having suicidal thoughts, "I thought about harming myself by crashing my truck in a telephone poll probably" last time was yesterday morning reportedly. Denies any past suicide attempts. States "the thoughts come and go, and has gradually gotten worse in the past couple months". Denies other suicidal plans apart from crashing truck. Reports depression started "has been progressively getting worse the past couple months, getting real bad". States "I'm tired all the time and can barely function", "I don't have interest in doing anything including leaving my room", Reports having breakdowns where he "cries alot". Stressors include work, "has been stressful, just seems I get a pena to get there on time, if not get punished". Denies other stressors on questioning. Does endorse mild depressive periods at the age of 17, reports didn't get along with mother's boyfriend "was a drunk and treated me like a piece of trash". Denies any abuse or trauma history. Endorses longstanding social anxiety. Denies access to weapons including guns or knives. Denies drug use and toxicology screen is negative. Vital signs: See below Consultants involved: See medical H&P by hospitalist Treatment and progress on the unit: Patient was admitted to the [facility] on a 39 legal status and was afforded the following treatment modalities: 1. Individual therapy 2. Group therapy 3. Medication management 4. Milieu therapy 5. Safe environment Hospital course: Patient was admitted to the [facility] on a 39 legal status. Was medically cleared prior to coming up to the [facility]. Patient was started on sertraline 50 mg p.o. daily as he was endorsing depressed mood, low energy, erratic sleep, anhedonia, was also started on Abilify 2 mg which was titrated up to 5 mg as he did report some paranoia in context of the severe depression feeling that people were watching him or coming after him at times when and deep depressive episodes. Denied PTSD symptoms or history of trauma. Initially the medications endorsed some diarrhea when starting his sertraline which subsided as he adjusted to the medication, also endorses some muscle cramps under his lef t scapula after the Abilify dose was increased to 5 mg, refused Cogentin for acute dystonia which was discussed with him, and instead agreed to decreasing Abilify to 2 mg, after this the dystonia went away and he felt that the combination of medications helped his mood, his sleep improved, his energy improved, no longer felt depressed, denied any suicidal thoughts, no longer had any paranoia. Collateral was obtained by mother who feels he has had a little bit better over the phone and she was made aware of him having these thoughts, endorses depression ran in the family and they would try to monitor how he is doing and encouraged him to be more open with those around him instead of isolating. Safety plan was established with safe social work and follow-up appointments. Patient found medications beneficial and tolerated them well after doses were adjusted. Denies mood, anxiety or intrusive thoughts which improved with treatment. Patient attended groups daily during stay. Patient symptoms improved with treatment. On day of discharge patient denied depression, anxiety, insomnia, suicidal or homicidal ideations intent or plan, hallucinations, delusions. Patient was discharged home with follow-up. Patient felt safe for discharge. Was offered continued stay on voluntary admission but refused. Discharge assessment: On today's interview patient is alert and oriented, dressed appropriately. Hygiene and grooming is well-kept. Eye contact is significantly improved, patient is a lot more talkative than previous days and reports a significant improvement in mood. Patient denies medication side effects. 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 Smiles on approach and is pleasant and engaged on interview, was seen in the social media talking with other patients, playing board games laughing and joking with them. Denies depression and anxiety. Denies suicidal homicidal ideation, intent or planning. Denies and is not observed with clemente or psychotic symptoms of delusions, hallucinations, bizarre thinking, obsessions, paranoia, ruminations, illogical thoughts, flight of ideas or having poor insight or judgment. Patient has normal mentation, declines further hospitalization of voluntary status and meets criteria for discharge today, patient encouraged to return the hospital if symptoms worsen or change and encouraged to call unit if they feel they need provider's questions to be answered or help with medications or care. Mental status: Patient is a 20-year old male, who is has good hygiene, tall, average build, appears stated age, continues to have improved eye contact. Speech: Is slowed, non-spontaneous, decreased amount Language skills good Thought processes including: Linear and logical, becoming more goal oriented to return to life outside the hospital Thought content: Denies suicidal ideation, intent or plan, denies homicidal ideation intent or plan Abstract reasoning, and computation: Good description of associations: Good. Description of abnormal or psychotic thoughts: Denies. Judgment: Good Insight: Improving Orientation: x4 Recent and remote memory: Intact. Attention span and concentration: Poor Language: Moldovan. Fund of knowledge: Average. Mood: "Feeling really good, do have concerns about being in the field but I will be okay". Affect: Euthymic, mildly anxious, full, stable, appropriate, mood- congruent Medications on discharge: -see medication reconciliation: CSSRS on discharge: Wish to be : No nonspecific active suicidal thoughts: No lifetime attempts: 0 interrupted attempts: 0 aborted attempts: 0 preparatory acts or behavior: None Taking into consideration safety state, status, modifiable, non-modifiable risk factors patient is at low risk on discharge for suicide according to [place] suicide evaluation. PLAN/FOLLOWUP ARRANGEMENTS: Follow Up Care Education Label * Mental Health Appt 1 * Mental Health 1st Embedded BH * Established With This Provider Yes * Additional information CLINIC/DIV PROVIDER DATE/TIME DTL CODES STATUS ===== 1ST BCT [facility]/1BCT ALBERT BARRERA [id number]@1301 FTR/60 PENDING Arrive 15 min early 1ST BCT [facility]/1BCT COL [place] [id number]@0800 SPEC/90 PENDING Arrive 15 min early TECH 1ST BCT [facility]/1BCT CHIRAG,DORIE [id number]@1100 FTR/60 PENDING Arrive 15 min early 1ST BCT [facility]/1BCT CHIRAG,DORIE [id number]@1000 FTR/60 PENDING Arrive 15 min early 1ST BCT [facility]/1BCT CHIRAG,DORIE [id number]@1000 FTR/60 PENDING Arrive 15 min early 1ST BCT [facility]/1BCT CHIRAG,DORIE [id number]@1000 FTR/60 PENDING The amount of time spent in the coordination of care for this patient was approximately 35 minutes. ETOH/Disorder Med Rx ETOH/DRUG DISORDER RX: N/A Vital Signs/I&Os Vital Signs Date Time Temp Pulse Resp B/P (MAP) Pulse Ox O2 Delivery O2 Flow Rate FiO2 06/02/21 09:35 Room Air 06/02/21 06:34 97.8 108 16 138/65 (89) 97 Medications Scheduled Aripiprazole (Abilify) 2 Mg Tablet, 2 MG PO QHS for mood, #7 Sertraline HCl (Sertraline HCl) 50 Mg Tablet, 50 MG PO QAM for mood, #7 Scheduled PRN Trazodone HCl (Trazodone HCl) 50 Mg Tablet, 50 MG PO QHSP PRN for INSOMNIA, #7 Allergies Coded Allergies: No Known Allergies (Unverified , 05/25/21) JOSE BRITO MD Jun 02, 2021 10:25
== END 2021-06-02 13:10 | disposition home or self-care (01) | DRG 885 ==
LOC: M ED 13:16 → M ED INP 16:42 → M PSY 17:20
PROVIDERS: ADMIT Student in an Organized Health Care Education/Training Program; ATTEND Student in an Organized Health Care Education/Training Program
DX: F32.3 Major depressive disorder, single episode, severe with psychotic features (principal); F41.9 Anxiety disorder, unspecified; F40.00 Agoraphobia, unspecified

== ENCOUNTER → 2023-04-02 | Outpatient (REF) ==
[~2023-04-02] MED LIST: ABIL1TAB13 PO; SERT50TA29 PO; TRAZ-252 PO
== END ==
LOC: M PLAIMG 10:31
PROVIDERS: ATTEND Internal Medicine
DX: M54.50 Low back pain, unspecified (principal); M79.642 Pain in left hand; M54.2 Cervicalgia

== ENCOUNTER → 2023-12-11 | Outpatient (CLI) | payer OTHER ==
[~2023-12-11] MED LIST changes: +METHACHOLINE KIT (6 VIAL.NEB PREMIX) INH ONE
== END ==
LOC: M CARPUL 14:24
PROVIDERS: ATTEND Physician Assistant
DX: R06.00 Dyspnea, unspecified (principal)

== ENCOUNTER → 2025-04-29 | Outpatient (CLI) | payer OTHER ==
[~2025-04-29] MED LIST changes: -METHACHOLINE KIT (6 VIAL.NEB PREMIX) INH ONE
== END ==
LOC: M RAD 08:37
PROVIDERS: ATTEND Physician Assistant
DX: R91.8 Other nonspecific abnormal finding of lung field (principal)